=== PATIENT | male | born 1965 | race Caucasian/White ===

== ENCOUNTER → 2020-11-24 | Outpatient (CLI) | payer BC | LOC: HEART CORB 12:16 | DX: R07.2 Precordial pain (principal); R94.39 Abnormal result of other cardiovascular function study ==

== ENCOUNTER 2021-06-29 21:36 | Inpatient (IN) | payer BC ==
[~2021-06-29] VITALS: Ht 167.6 cm; Wt 90.7 kg
[2021-06-29 21:53] LABS: HEMOGLOBIN 17.6 gm/dl (14.0-17.5); RED BLOOD COUNT 5.42 M/UL (4.20-5.50); WHITE BLOOD COUNT 13.9 K/UL (4.5-11.0)
[2021-06-29 22:17] LABS: BUN/CREATININE RATIO 13 (0-10)
[2021-06-30] MEDS ORDERED: ASPIRIN EC325 MG PO (11:24)
[2021-06-30] MEDS ORDERED: ATORVASTATIN CA80 MG PO (11:24)
[2021-06-30] MEDS ORDERED: PROTONIX 40 MG40 M1 PO (11:25)
[2021-06-30] MEDS ORDERED: BUPROPION XL150 MG PO (11:26)
[2021-06-30] MEDS ORDERED: ROPINIROLE HCL0.5 MG PO (11:27)
[2021-06-30] MEDS ORDERED: VALSARTAN320 MG PO (11:28)
[2021-06-30] MEDS ORDERED: ROBAXIN 750 MG750 MG PO (11:30)
[2021-06-30] MEDS ORDERED: VICKS VAPORUB O50 GM TOP (11:31)
--- NOTE | 2021-06-30 14:23 | NUR ---
reported to dr. [place] of the mri result and she stated " i know. you dont need to do anything".
--- NOTE | 2021-06-30 14:27 | NUR ---
this morning received instruction to give patient potassium r/t patient potassium level was 3.4
--- NOTE | 2021-06-30 15:02 | NUR ---
spoken with dr. rutledge r/t mri result. no order received
[2021-06-30] MEDS ORDERED: MECLIZINE HCL25 MG PO (18:32)
[2021-06-30] MEDS ORDERED: ASPIRIN EC81 MG PO (18:32)
[2021-06-30] MEDS ORDERED: CLOPIDOGREL75 MG PO (18:32)
[2021-07-01 04:03] LABS: HEMOGLOBIN 16.9 gm/dl (14.0-17.5); RED BLOOD COUNT 5.27 M/UL (4.20-5.50); WHITE BLOOD COUNT 12.2 K/UL (4.5-11.0)
--- NOTE | 2021-07-01 10:32 | NUR ---
patient have neurology and cardiology appointment made for [facility] and will not be going to [facility] for the above services. patient agreeable of the above. patient and reported that he is receiving PT services already and does not need a new order. instructed to inform PT for safety issues r/t dizziness. patient and agreeable. intensive discharge teachings were given by Danielle discharge nurse
== END 2021-07-01 10:54 | disposition home health service (06) | DRG 65 ==
LOC: ER1 21:36 → M/S 06-30 01:43 → CDU 06-30 01:43 → M/S 06-30 08:28
PROVIDERS: Family Medicine; ADMIT Internal Medicine
DX: I63.9 Cerebral infarction, unspecified (principal); N17.9 Acute kidney failure, unspecified; H81.10 Benign paroxysmal vertigo, unspecified ear; H81.4 Vertigo of central origin; Z20.822 Contact with and (suspected) exposure to COVID-19; E87.6 Hypokalemia; I10 Essential (primary) hypertension; I73.9 Peripheral vascular disease, unspecified; F17.210 Nicotine dependence, cigarettes, uncomplicated; R00.1 Bradycardia, unspecified; Z79.82 Long term (current) use of aspirin; Z82.49 Family history of ischemic heart disease and other diseases of the circulatory system
CPT/HCPCS: 36415; 70450; 70496; 70498; 70551; 80048; 80053; 82962; 83735; 83880; 84132; 84484; 85025; 85027; 85610; 85730; 93005; 93270; 96374; 96375; 97161; 97530; 99285; J0461; J1650; J7120; Q9967; U0002

== ENCOUNTER → 2021-07-03 | Outpatient (CLI) | payer BC ==
[~2021-07-03] MED LIST: ASPIRIN EC325 MG PO; ASPIRIN EC81 MG PO; ATORVASTATIN CA80 MG PO; BUPROPION XL150 MG PO; CLOPIDOGREL75 MG PO; MECLIZINE HCL25 MG PO; PROTONIX 40 MG40 M1 PO; ROBAXIN 750 MG750 MG PO; ROPINIROLE HCL0.5 MG PO; VALSARTAN320 MG PO; VICKS VAPORUB O50 GM TOP
== END ==
LOC: LAB 09:29
PROVIDERS: Internal Medicine
DX: N17.9 Acute kidney failure, unspecified (principal)
CPT/HCPCS: 36415; 80048

== ENCOUNTER → 2021-07-31 | Outpatient (CLI) | payer BC ==
[2021-07-31 14:11] LABS: HEMOGLOBIN 15.7 gm/dl (14.0-17.5); RED BLOOD COUNT 4.9 M/UL (4.20-5.50); WHITE BLOOD COUNT 8.6 K/UL (4.5-11.0)
[2021-07-31 14:26] LABS: BUN/CREATININE RATIO 11 (0-10)
== END ==
LOC: LAB 13:38
PROVIDERS: Internal Medicine Interventional Cardiology
DX: Z01.818 Encounter for other preprocedural examination (principal); I20.9 Angina pectoris, unspecified; R07.89 Other chest pain; I63.9 Cerebral infarction, unspecified; I50.9 Heart failure, unspecified
CPT/HCPCS: 36415; 80048; 85025; 85610; 85730; 93005

== ENCOUNTER 2021-08-10 09:24 | Outpatient (CLI) | payer BC ==
[~2021-08-10] VITALS: Ht 167.6 cm; Wt 93.4 kg
[2021-08-10] MEDS ORDERED: TOPROL XL25 MG PO (09:57)
--- NOTE | 2021-08-10 16:35 | NUR ---
TR BAND OFF. SITE CDI. COVERED WITH 2X2 AND BANDAID. ARM BOARD PLACED BACK ON PATIENT. WNL. WCTM.
[2021-08-10 20:05] LABS: HEMOGLOBIN 14.7 gm/dl (14.0-17.5); RED BLOOD COUNT 4.64 M/UL (4.20-5.50); WHITE BLOOD COUNT 10.3 K/UL (4.5-11.0)
[2021-08-11 02:11] LABS: HEMOGLOBIN 14.3 gm/dl (14.0-17.5); RED BLOOD COUNT 4.48 M/UL (4.20-5.50); WHITE BLOOD COUNT 9.7 K/UL (4.5-11.0)
[2021-08-11 02:38] LABS: BUN/CREATININE RATIO 14 (0-10)
--- NOTE | 2021-08-11 15:06 | NUR ---
DR. SANDHU REQUESTED NITRO SUBLINGUAL 0.4 MG PO TABS BE CALLED INTO [facility] FOR PT. CALLED RX IN ORDERED AND CALLED PT TO INFORM HIM THAT RX HAD BEEN CALLED IN
[2021-08-11] MEDS ORDERED: NITROGLYCERIN0.4 MG SL (15:30)
== END 2021-08-11 10:55 | disposition home or self-care (01) ==
LOC: CATH 09:24 → PROG CARE 13:01 → CATH 08-11 10:55
PROVIDERS: Internal Medicine Interventional Cardiology
DX: I25.118 Atherosclerotic heart disease of native coronary artery with other forms of angina pectoris (principal); I10 Essential (primary) hypertension; I63.9 Cerebral infarction, unspecified; E78.5 Hyperlipidemia, unspecified; I73.9 Peripheral vascular disease, unspecified; Z87.891 Personal history of nicotine dependence; Z79.82 Long term (current) use of aspirin; Z79.02 Long term (current) use of antithrombotics/antiplatelets
CPT/HCPCS: 36415; 80048; 82550; 82553; 84484; 85027; 85347; 93571; 99152; 99153; C1725; C1769; C1874; C1887; C1894; C9600; J0153; J0461; J1644; J2250; J3010; J3246; J7030; J7040; Q9967